=== PATIENT | male | born 1980 | race Caucasian/White ===

== ENCOUNTER 2017-10-29 16:17 | Emergency (ER) | payer SELFPAY ==
[2017-10-29] MEDS: IBUPROFEN 800 MG TAB PO (16:54)
[2017-10-29] MEDS: SULFAMETHOXAZOLE-TRIMETHOPRIM DS 800-160 MG TAB PO (16:55)
[2017-10-29] MEDS: CEPHALEXIN MONOHYDRATE 500 MG CAP PO (16:55)
== END 2017-10-29 17:03 | disposition home or self-care (01) ==
LOC: PHEFT 16:17
DX: L03.313 Cellulitis of chest wall (principal); F17.200 Nicotine dependence, unspecified, uncomplicated; Z79.899 Other long term (current) drug therapy; Z88.0 Allergy status to penicillin; Z88.8 Allergy status to other drugs, medicaments and biological substances
CPT/HCPCS: 99283

== ENCOUNTER 2017-11-04 08:09 | Emergency (ER) | payer SELFPAY ==
[~2017-11-04 08:09] MED LIST: BACT800T5 PO; CEPH-460 PO; IBUP1TAB7 PO; METH10TA PO
[2017-11-04] MEDS ORDERED: FLUCONAZOLE 100 MG TAB PO ONE (08:45)
[2017-11-04] MEDS ORDERED: NYST15T TOPICAL (08:46)
--- NOTE | 2017-11-04 08:51 | PD ---
HPI Chief Complaint: Skin Problem Time Seen by Provider: 08:33 Travel History International Travel<30 days: No Contact w/Intl Traveler<30days: No Traveled to known affect area: No History of Present Illness HPI 29-year-old male who is currently being treated for cellulitis of his anterior chest, presents today with complaints of rash and pain in his left groin and buttocks. Patient states that 2 days ago he started having itching in his left groin area and buttock fold. He reports that it is red and irritated and very painful. He denies any fevers, chills. He denies any other symptoms. He does report that the chest cellulitis is actually improved and nearly resolved. PFSH Past Medical History Diminished Hearing: No Immunizations Current: No Past Surgical History Tonsillectomy: Yes (AND ADENOIDS) Tympanostomy Tube: Yes Other Surgery: Yes (CYST REMOVED RIGHT EAR, AND UNDER CHIN) Social History Alcohol Use: No Tobacco Use: Yes (1 PPD) Substance Use: No Allergies-Medications (Allergen,Severity, Reaction): Coded Allergies: amoxicillin (Verified Adverse Reaction, Severe, "MAKES ME CRAZY", 11/04/17) doxycycline (Verified Adverse Reaction, Severe, VOMITING, 11/04/17) Reported Meds & Prescriptions Reported Meds & Active Scripts Active Lorcet (Hydrocodone-Acetaminophen) 5-325 mg Tab 1 Tab PO Q8HR PRN Nystatin Topical (Nystatin) 100,000 unit/gm Cream 1 Applic TOPICAL BID Ibuprofen 800 Mg Tab 800 Mg PO TID PRN Keflex (Cephalexin) 500 Mg Cap 500 Mg PO Q6H 10 Days Bactrim DS (Sulfamethoxazole-Trimethoprim) 800-160 Mg Tab 1 Tab PO BID Reported Methadone (Methadone HCl) 10 Mg Tab 30 Mg PO DAILY Review of Systems Except as stated in HPI: all other systems reviewed are Neg General / Constitutional: No: Fever, Chills Gastrointestinal: Positive: Other (Erythematous irritated rash in the buttock fold.), No: Nausea, Vomiting, Diarrhea Genitourinary: Positive: Other (Urticarial painful rash in the left inguinal fold.) Musculoskeletal: No: Weakness, Pain Skin: Positive Rash (Left inguinal fold and buttock.), Positive Other ( Urticarial erythematous painful rash in the left groin and buttock fold.) Neurologic: No: Weakness, Headache Physical Exam Narrative GENERAL: Well-nourished, well-developed patient, in no acute respiratory distress.. SKIN: Focused skin assessment warm/dry. HEAD: Normocephalic/atraumatic. EYES: No scleral icterus. No injection or drainage. NECK: Supple, trachea midline. No JVD or lymphadenopathy. CARDIOVASCULAR: Regular rate and rhythm without murmurs, gallops, or rubs. RESPIRATORY: Breath sounds equal bilaterally. No accessory muscle use. GASTROINTESTINAL: On examination patient's buttock full, there is a erythematous moist rash consistent with Mague. GENITOURINARY: Circumcised. Testes descended bilaterally without evidence of rotation. Erythematous rash in the left inguinal area that appears moist and red. This is consistent with Mague. MUSCULOSKELETAL: No cyanosis, or edema. NEUROLOGICAL: Awake and alert. Cranial nerves II through XII intact. Motor and sensory grossly within normal limits. Five out of 5 muscle strength in all muscle groups. Normal speech. Data Data Orders Orders Fluconazole (Diflucan) (11/04/17 08:45) MDM Medical Decision Making Medical Screen Exam Complete: Yes Emergency Medical Condition: Yes Differential Diagnosis Cellulitis versus candidiasis versus heat rash Narrative Course 37-year-old male who is being treated for left upper chest cellulitis, presents today with erythematous painful rash in his left groin and buttock fold. The patient was concerned that this is a rash that is associated with his cellulitis on the chest. This clearly appears to be candidal in nature. He has been given Diflucan 150 mg 1 dose. He will be given a prescription for nystatin topical cream and told to apply twice daily until rash resolves. You will be given 3 days of Loricet 5 for discomfort. He is instructed to not drive or drink alcohol taking his medication. Diagnosis Primary Impression: Left inguinal candidiasis Additional Impressions: Buttock fold candidiasis Recent antibiotic use for cellulitis Additional Instructions: Keep skin clean and dry. Return if worse. Med/Other Pt SpecificInfo: Prescription(s) given Scripts Hydrocodone-Acetaminophen (Lorcet) 5-325 mg Tab 1 TAB PO Q8HR Y for pain, #9 TAB 0 Refills Prov: Stiven Aldana MD 11/04/17 Nystatin Topical (Nystatin Topical) 100,000 unit/gm Cream 1 APPLIC TOPICAL BID for Infection, #15 GM 0 Refills Prov: Stiven Aldana MD 11/04/17 Disposition: 01 DISCHARGE HOME Condition: Stable Stiven Aldana MD November 04, 2017 08:51
[2017-11-04] MEDS ORDERED: HYDR-3576 PO (08:52)
[2017-11-04 08:53] VITALS: BP 114/71; PULSE 99; RESP 16; TEMP 99.3; O2SAT 98
[2017-11-04] MEDS ORDERED: PILL SPLITTER OTHER PRN (09:30)
== END 2017-11-04 09:39 | disposition home or self-care (01) ==
LOC: PHED 08:09
DX: B37.2 Candidiasis of skin and nail (principal); L03.313 Cellulitis of chest wall; F17.200 Nicotine dependence, unspecified, uncomplicated
CPT/HCPCS: 99283